=== PATIENT | male | born 1935 | race Caucasian/White ===

== ENCOUNTER 2018-03-05 10:57 | Emergency (ER) | payer MEDICARE ==
[~2018-03-05] VITALS: Ht 175.3 cm; Wt 136.1 kg
[2018-03-05 11:09] VITALS: BP_SYST 118
== END 2018-03-05 12:54 | disposition home or self-care (01) ==
LOC: SED 10:57
DX: S09.90XA Unspecified injury of head, initial encounter (principal); E11.9 Type 2 diabetes mellitus without complications; F03.90 Unspecified dementia, unspecified severity, without behavioral disturbance, psychotic disturbance, mood disturbance, and anxiety; I10 Essential (primary) hypertension; W19.XXXA Unspecified fall, initial encounter; Y93.89 Activity, other specified; Y92.89 Other specified places as the place of occurrence of the external cause; Y99.8 Other external cause status
CPT/HCPCS: 70450-TC; 99284

== ENCOUNTER 2018-09-24 09:16 | Emergency (ER) | payer MEDICARE ==
[~2018-09-24] VITALS: Ht 172.7 cm; Wt 99.8 kg
[2018-09-24 09:21] VITALS: BP_SYST 121
[2018-09-24] MEDS ORDERED: NACL 0.9% 1,000 ML IV ONE (09:45)
[2018-09-24] MEDS ORDERED: ASPIRIN 81 MG TAB.CHEW PO ONE (09:45)
[2018-09-24 10:36] LABS: HEMOGLOBIN 15.3 g/dL (14.0-18.0); RED BLOOD CELL COUNT(AUTO) 4.91 MIL/uL (4.2-6.2); WHITE BLOOD COUNT (AUTO) 6.2 K/uL (4.8-10.8)
[2018-09-24 10:37] LABS: BASOPHILS % (AUTO) 0.3 % (0.0-2.0); EOSINOPHILS # (AUTO) 0.1 K/uL (0.0-0.4); EOSINOPHILS % (AUTO) 1.2 % (0.0-4.0); HEMATOCRIT 45.6 % (36-54); LYMPHOCYTES # (AUTO) 1.2 K/uL (1.0-5.5); LYMPHOCYTES % (AUTO) 19.7 % (20.5-51.5); MEAN CORPUSCULAR HEMOGLOBIN 31 pg (27-31); MEAN CORPUSCULAR HGB CONC 34 % (32-36); MEAN CORPUSCULAR VOLUME 93 fL (79.0-98.0); MONOCYTES # (AUTO) 0.5 K/uL (0.0-1.0); MONOCYTES % (AUTO) 7.4 % (1.7-9.3); NEUTROPHILS # (AUTO) 4.4 K/uL (1.8-7.7); NEUTROPHILS % (AUTO) 71.4 % (40.0-70.0); PLATELET COUNT (AUTO) 132 K/uL (130-430); RED CELL DISTRIBUTION WIDTH 12.9 % (9.0-15.0)
[2018-09-24 10:42] LABS: ANION GAP 5 (5-15); CALCIUM 8.6 mg/dL (8.4-11.0); CHLORIDE 103 mmol/L (98-107); CREATININE 0.82 mg/dL (0.55-1.30); GLUCOSE 135 mg/dL (70-99); POTASSIUM 3.9 mmol/L (3.5-5.1); SODIUM SERUM 137 mmol/L (136-145); UREA NITROGEN, BLOOD 17 mg/dL (8-21)
[2018-09-24 10:45] LABS: ALANINE AMINOTRANSFERASE 69 U/L (12-78); ALBUMIN 3.2 g/dL (3.4-4.8); ASPARTATE AMINOTRANSFERASE 35 U/L (10-37); INR 1.1 (0.80-1.20); PROTHROMBIN TIME 10.8 SECS (9.5-12.5); TOTAL BILIRUBIN 0.9 mg/dL (0.0-1.0)
[2018-09-24 13:39] VITALS: BP_SYST 107
== END 2018-09-24 13:39 | disposition short-term general hospital (02) ==
LOC: SED 09:16
DX: I48.91 Unspecified atrial fibrillation (principal); I25.2 Old myocardial infarction; E11.9 Type 2 diabetes mellitus without complications; I10 Essential (primary) hypertension; F03.90 Unspecified dementia, unspecified severity, without behavioral disturbance, psychotic disturbance, mood disturbance, and anxiety
CPT/HCPCS: 36415; 71045; 80053; 83605; 84484; 85025; 85610; 85730; 87040; 93005; 99285; J7030

== ENCOUNTER 2019-06-01 18:17 | Emergency (ER) | payer MEDICARE ==
[~2019-06-01] VITALS: Ht 180.3 cm; Wt 114.3 kg
--- NOTE | 2019-06-01 18:20 | NUR ---
Patient to ER bed 5 to gown for evaluation. Side rails up. Report given to DANISHA MOLINA
--- NOTE | 2019-06-01 18:20 | NUR ---
Pt brought in by ambulance. Ambulance crew stated that the patient was at a hospice eating in the dining room and he started to have a coughing fit and appeared that he was choking on something. the patient was able to clear airway at the scene and medics were called. Crew states that the patient displayed no distress on scene, maintained clear airway the duration of the ride. Pt arrived with no acute distress. Pt is awake, alert, confused, normal for patient according to the ems crew. Pt non-ambulatory, wearing pamper at this time. Pt VSS, will continue to monitor.
[2019-06-01 18:24] VITALS: BP_SYST 118
--- NOTE | 2019-06-01 19:04 | NUR ---
Radiology bedside performing Chest Xray
--- NOTE | 2019-06-01 19:30 | NUR ---
Pt resting in bed, no acute distress noted at this time. VSS, will continue to monitor
--- NOTE | 2019-06-01 20:50 | NUR ---
ER Dr. Marinelli at bedside examining patient.
--- NOTE | 2019-06-01 21:15 | NUR ---
Pt Resting Comfortably in bed, No acute signs of distress at this time.
--- NOTE | 2019-06-01 22:20 | NUR ---
Pt resting comfortably in Bed. and Daughter present. Alvo provided for comfort.
[2019-06-01 23:30] VITALS: BP_SYST 131
--- NOTE | 2019-06-01 23:30 | NUR ---
Patient and family given written and verbal discharge instructions and verbalizes understanding. ER MD discussed with patient and family the results and treatment provided. Patient in stable condition. ID arm band removed. No IV No RX given. Patient educated on pain management and to follow up with PMD. Pain Scale 0/10. Opportunity for questions provided and answered.
== END 2019-06-01 23:30 | disposition home or self-care (01) ==
LOC: SED 18:17
DX: T17.928A Food in respiratory tract, part unspecified causing other injury, initial encounter (principal); I10 Essential (primary) hypertension; E11.9 Type 2 diabetes mellitus without complications; X58.XXXA Exposure to other specified factors, initial encounter; Y93.89 Activity, other specified; Y92.89 Other specified places as the place of occurrence of the external cause; Y99.8 Other external cause status
CPT/HCPCS: 70360-TC; 71045; 99283